=== PATIENT | female | born 1970 | race Caucasian/White ===

== ENCOUNTER 2024-05-14 19:36 | Emergency (ER) | payer BC, OTHER ==
[2024-05-14 19:58] VITALS: BP 125/84; PULSE 77; RESP 16; TEMP 98.2; BMI 21.7
[2024-05-14] MEDS ORDERED: IBUPROFEN 600 MG TABLET (FP) PO ONE (20:04)
[2024-05-14] MEDS: IBUPROFEN 600 MG TABLET (FP) PO ONE (20:07)
== END 2024-05-14 20:57 | disposition home or self-care (01) ==
LOC: FER 19:36
DX: S60.222A Contusion of left hand, initial encounter (principal); W01.0XXA Fall on same level from slipping, tripping and stumbling without subsequent striking against object, initial encounter
CPT/HCPCS: 73130-TC-LT-FY; 99283-25